=== PATIENT | male | born 1945 | race Caucasian/White ===

== ENCOUNTER 2020-08-19 12:29 | Inpatient (IN) ==
[2020-08-19] MEDS ORDERED: LACTATED RINGERS 1,000 ML IV ONE (12:47)
--- NOTE | 2020-08-19 12:47 | Emergency Department Note ---
Lower Extremity Injury HPI General Chief Complaint: Extremity Injury, Lower Stated Complaint: right hip fracture Time Seen by Provider: 08/19/20 12:39 Source: patient, EMS and RN notes reviewed Mode of arrival: EMS Limitations: no limitations History of Present Illness HPI Narrative: Narrative: This patient slipped and fell in his house last evening and called into another room to get help by phone and was taken to [place] [facility] and was diagnosed with a right hip fracture. He did have a negative COVID test done there. He had no other further work-up done and was transferred here. Dr. Mauricio was previously aware as well as Dr. Luu. Patient does have pain we will treat that and do the initial preop work-up and then he will be admitted to the hospital by Dr. Luu. complaint: hip injury Onset (ago): hour(s) Injury: Right: hip Place: home Severity: moderate Improves with: rest Worsens with: weight bearing, movement and palpation Context: fall Other symptoms: none Related Data Home Medications Medication Instructions Recorded Confirmed aspirin [Adult Low Dose Aspirin] 81 mg PO QDAY 07/22/15 08/19/20 citalopram 20 mg PO DAILY 07/22/15 08/19/20 omeprazole 20 mg PO BID 07/22/15 08/19/20 simvastatin 20 mg PO DAILY 07/22/15 08/19/20 melatonin 10 mg PO HS 08/19/20 08/19/20 methocarbamol 325 mg PO QID 08/19/20 08/19/20 oxybutynin chloride 5 mg PO QID 08/19/20 08/19/20 oxycodone-acetaminophen 1 tab PO TID 08/19/20 08/19/20 Allergies Allergy/AdvReac Type Severity Reaction Status Date / Time ciprofloxacin [CIPROFLOXACIN] AdvReac Mild ITCHING Verified 08/19/20 16:11 Review of Systems ROS ROS Narrative: Narrative: All systems ED: reviewed and negative except as stated. Constitutional: Denies fever and chills Cardiovascular: Denies chest pain Respiratory: Denies shortness of breath and cough PFSH Narrative Patient History Narrative: Narrative: Medical/Surgical/Family History All Active Problems (Updated 08/20/20 @ 07:30 by Lucius Lopez MD) Closed right hip fracture (Acute) Osteoarthritis, knee (Acute) Medical History (Updated 08/20/20 @ 07:30 by Lucius Lopez MD) Closed right hip fracture (Acute) Osteoarthritis, knee (Acute) Social History Smoking Status: Never smoker Exam Narrative Narrative: Narrative: General Limitations: no limitations Head Head: Present atraumatic, normocephalic and normal inspection Eye Eye: Present normal appearance and EOMI; Absent scleral icterus and conjunctival injection ENT ENT: Present normal exam, normal oropharynx and mucous membranes moist Neck Neck: Present normal inspection and full ROM Chest Chest: Present normal inspection and symmetric chest wall rise Respiratory Respiratory: Present normal lung sounds bilaterally; Absent respiratory distress, rales/crackles and wheezes Cardiovascular Cardiovascular: Present regular rate, normal rhythm and normal heart sounds Adbominal Abdominal: Present soft; Absent distention and tenderness Extremities Extremities: Present other (Right leg shortening with external rotation and tenderness to the hip.) Neurological Neurological: Present alert Psychiatric Psychiatric: Present normal affect Skin Skin: Present warm (WNL) and dry; Absent diaphoresis Course Vital Signs Vital signs: Vital Signs Temperature 98.4 F 08/19/20 12:31 Pulse Rate 97 H 08/19/20 12:31 Respiratory Rate 16 08/19/20 12:31 Pulse Oximetry (%) 100 08/19/20 12:31 Temperature 98.7 F 08/20/20 04:24 Pulse Rate 101 H 08/20/20 04:24 Respiratory Rate 18 08/20/20 04:24 Blood Pressure 97/66 08/20/20 04:24 Pulse Oximetry (%) 94 08/20/20 04:24 MDM MDM Narrative Medical decision making narrative: Narrative: Lab Data Lab results reviewed: Yes I reviewed the patient's lab results. Result diagrams: 08/19/20 12:53 08/20/20 05:51 Labs: Lab Results 08/19/20 08/19/20 08/19/20 Range/Units 12:53 12:53 12:53 WBC 5.5 (4.5-11.0) K/mcL RBC 3.76 L (4.50-5.90) M/mcL Hgb 12.0 L (13.5-16.5) g/dL Hct 33.8 L (41.0-55.0) % MCV 89.9 (80.0-100.0) fL MCH 31.9 (26.0-34.0) pg MCHC 35.5 (31.0-36.0) g/dL RDW 12.7 (11.5-14.5) % Plt Count 184 (140-440) K/mcL MPV 9.4 (7.4-10.4) fL Neut % (Auto) 77.4 (38.0-78.0) % Lymph % (Auto) 11.8 L (15.0-49.0) % Coffee % (Auto) 9.9 (1.0-12.0) % Eos % (Auto) 0.4 (0.0-7.0) % Baso % (Auto) 0.5 (0.0-2.0) % Lymph # (Auto) 0.65 L (1.50-4.80) K/mcL Coffee # (Auto) 0.55 (0.10-0.90) K/mcL Eos # (Auto) 0.02 (0.00-0.70) K/mcL Baso # (Auto) 0.03 (0.00-0.20) K/mcL Absolute Neutrophils 4.28 (1.80-8.00) K/mcL PT 13.3 (11.9-14.5) sec INR 1.0 (0.9-1.1) Sodium 129 L (133-145) mmol/L Potassium 3.5 (3.3-5.1) mmol/L Chloride 95 L (96-108) mmol/L Carbon Dioxide 23 (22-30) mmol/L Anion Gap 11.0 (8.0-16.0) BUN 13 (8-23) mg/dL Creatinine 0.7 (0.7-1.2) mg/dL GFR Calculation 91 Glucose 92 (70-105) mg/dL Calcium 8.9 (8.6-10.4) mg/dL Total Bilirubin 1.1 H (0.1-1.0) mg/dL AST 16 (<40) U/L ALT 10 (<40) U/L Alkaline Phosphatase 50 (39-117) U/L Total Protein 5.5 L (5.9-8.4) gm/dL Albumin 3.7 (3.2-5.2) gm/dL Globulin 1.8 L (2.2-3.7) gm/dL Albumin/Globulin Ratio 2.1 (1.0-2.3) Discharge Plan Patient/Caregiver Discharge Instructions Pt seen by STOCK PREPARATION OPERATOR/PA only: No Clinical Impression: Closed right hip fracture Patient Disposition: Xfer As Inpt ([facility]) Condition: Good Discharge Date/Time: 08/19/20 15:45 Discharge Location: [facility]
[2020-08-19] MEDS: HYDROmorphone 0.5 MG/0.5 ML SYRINGE IV PRN ×2 (13:00→14:25)
--- NOTE | 2020-08-19 13:06 | Internal Med History&Physical ---
HPI History of Present Illness Patient information: Note initiated : 08/19/20 at 1:04 pm Service Date, if different from initiated Date: [] Patient: Brandon Tripp a 75 y/o M admitted on for right hip fracture. Chief Complaint: [] History of present illness: Mr. Tripp is a 75 year old M very independent who lives alone at [facility]. Patient is morning got off balance and landed on his right side with resultant severe pain. Patient passed out for approximately half an hour following which he crawled into another room and called EMS. Patient was taken to [facility] where initial work-up was consistent with right hip fracture. Ortho pedics Dr. Mauricio was consulted and patient was requested to be transferred to [facility]. Patient was brought in to the [facility] ER. Hospital service was requested for admission. At the time of my evaluation patient is in significant distress from pain 10 out of 10 with minimal movement around the right hip. He denies precipitating events including lightheadedness, dizziness, prior similar episodes Review of systems 10 point review system was performed and is negative except for ones cussed above PFSH PFSH All Active Problems (Updated 08/20/20 @ 07:30 by Lucius Lopez MD) Closed right hip fracture (Acute) Osteoarthritis, knee (Acute) Medical History (Updated 08/20/20 @ 07:30 by Lucius Lopez MD) Closed right hip fracture (Acute) Osteoarthritis, knee (Acute) Social History smoking status: Never smoker MEDS/ALLERGIES Home Medications and Allergies Home Medications Medication Instructions Recorded Confirmed Type aspirin [Adult Low Dose Aspirin] 81 mg PO QDAY 07/22/15 08/19/20 History citalopram 20 mg PO DAILY 07/22/15 08/19/20 History omeprazole 20 mg PO BID 07/22/15 08/19/20 History simvastatin 20 mg PO DAILY 07/22/15 08/19/20 History melatonin 10 mg PO HS 08/19/20 08/19/20 History methocarbamol 325 mg PO QID 08/19/20 08/19/20 History oxybutynin chloride 5 mg PO QID 08/19/20 08/19/20 History oxycodone-acetaminophen 1 tab PO TID 08/19/20 08/19/20 History Allergies Allergy/AdvReac Type Severity Reaction Status Date / Time ciprofloxacin [CIPROFLOXACIN] AdvReac Mild ITCHING Verified 08/19/20 16:11 Onion AdvReac Nausea Verified 08/20/20 10:59 EXAM Constitutional Vitals: Temp Pulse Resp BP Pulse Ox 98.4 F 98 H 16 139/86 97 08/19/20 12:31 08/19/20 12:46 08/19/20 12:31 08/19/20 12:46 08/19/20 12:46 Very anxious and distressed from pain Head normocephalic Oral cavity moist No ear nose discharge Eye movement symmetrical Neck supple no lymphadenopathy S1-S2 occasionally irregular Nonlabored breathing Nondistended nontender abdomen Right lower extremity externally rotated and shortened, otherwise no cyanosis clubbing Skin no suspicious lesion Psych anxious but alert cooperative Neuro normal higher function DATA Data Completed and Pending Labs: Labs from last 24 hours 08/19/20 08/19/20 08/19/20 12:53 12:53 12:53 WBC Pending RBC Pending Hgb Pending Hct Pending MCV Pending MCH Pending MCHC Pending RDW Pending Plt Count Pending MPV Pending Neut % (Auto) Pending PT Pending INR Pending Sodium Pending Potassium Pending Chloride Pending Carbon Dioxide Pending Anion Gap Pending BUN Pending Creatinine Pending GFR Calculation Pending Glucose Pending Calcium Pending Total Bilirubin Pending AST Pending ALT Pending Alkaline Phosphatase Pending Total Protein Pending Albumin Pending Globulin Pending Albumin/Globulin Ratio Pending A/P Narrative A/P Narrative: * Right hip fracture-orthopedic consult/pain management/keep n.p.o. until operative intervention. * Preop risk evaluation-based on RCRI [employer] to stratification patient would fall under moderate to high risk category in the setting advanced age. Surgery and anesthesia specific risk will be addressed by individual providers. No modifiable risk factors at this time. Recommend maintaining Intra-Op map over 70 to minimize coronary and cerebral hypoperfusion. * History of GERD continue PPI * History of hyperlipidemia continue statin * Anxiety disorder continue citalopram * Full code Plan * Inpatient admission * Orthopedic consult * Pain management * Keep n.p.o./crystalloids * Postoperative rehab/dietary support Time Spent With Patient Time: Total time spent is greater than 50% in coordination of care (as documented) at patient's floor/unit and/or counseling patient:
--- NOTE | 2020-08-19 13:14 | XRay Report ---
CLINICAL INFORMATION: preop COMPARISON: 06/13/2009 FINDINGS: Heart is normal in size and configuration. Tortuous thoracic aorta again noted. The remaining mediastinum and pulmonary vessels are unremarkable. COPD appreciated, but no infiltrates or new pulmonary abnormalities. Pleural spaces are normal. Fractured sternotomy wires seen - as before. Severe degenerative change seen in both glenohumeral and acromioclavicular joints. Fractures the posterior fifth sixth seventh ribs are likely chronic. IMPRESSION: No acute disease. Interpreted and Authenticated by: Jovany Muhammad 08/19/20
[2020-08-19 13:48] LABS: Basophils # (Auto) 0.03 K/mcL (0.00-0.20); Basophils % (Auto) 0.5 % (0.0-2.0); Eosinophils # (Auto) 0.02 K/mcL (0.00-0.70); Eosinophils % (Auto) 0.4 % (0.0-7.0); Hematocrit 33.8 % (41.0-55.0); Lymphocytes # (Auto) 0.65 K/mcL (1.50-4.80); Lymphocytes % (Auto) 11.8 % (15.0-49.0); Mean Cell Volume 89.9 fL (80.0-100.0); Mean Corpuscular HGB Conc 35.5 g/dL (31.0-36.0); Mean Platelet Volume 9.4 fL (7.4-10.4); Monocytes # (Auto) 0.55 K/mcL (0.10-0.90); Monocytes % (Auto) 9.9 % (1.0-12.0); Neutrophils % (Auto) 77.4 % (38.0-78.0); Platelet Count 184 K/mcL (140-440); RBC 3.76 M/mcL (4.50-5.90); Red Cell Distribution Width 12.7 % (11.5-14.5); WBC 5.5 K/mcL (4.5-11.0)
[2020-08-19 14:14] LABS: ALT/SGPT 10 U/L (<40); AST/SGOT 16 U/L (<40); Albumin 3.7 gm/dL (3.2-5.2); Albumin/Globulin Ratio 2.1 (1.0-2.3); Alkaline Phosphatase 50 U/L (39-117); Bilirubin,Total 1.1 mg/dL (0.1-1.0); Blood Urea Nitrogen 13 mg/dL (8-23); Calcium 8.9 mg/dL (8.6-10.4); Carbon Dioxide 23 mmol/L (22-30); Chloride 95 mmol/L (96-108); Globulin 1.8 gm/dL (2.2-3.7); Glomerular Filtration Rate 91; Glucose 92 mg/dL (70-105)
[2020-08-19 14:34] LABS: Prothrombin Time 13.3 sec (11.9-14.5)
[2020-08-19] MEDS ORDERED: ONDANSETRON 4 MG ODT TABLET SL PRN ×2 (15:32→20:20)
[2020-08-19] MEDS ORDERED: MAGNESIUM SULFATE 2 GM/50 ML BAG IV PRN ×2 (15:32→20:20)
[2020-08-19] MEDS ORDERED: MELATONIN 3 MG TABLET PO PRN ×2 (15:32→20:20)
[2020-08-19] MEDS ORDERED: ACETAMINOPHEN 650 MG/65 ML BOTTLE IV PRN ×2 (15:32→20:20)
[2020-08-19] MEDS ORDERED: 0.9 % SODIUM CHLORIDE 10 ML SYRINGE IV SCH (15:32)
[2020-08-19] MEDS ORDERED: HYDROmorphone 0.5 MG/0.5 ML SYRINGE IV PRN (15:32)
[2020-08-19] MEDS ORDERED: POLYETHYLENE GLYCOL 3350 17 GM PACKET PO PRN ×3 (15:32→20:20)
[2020-08-19] MEDS ORDERED: BISACODYL 10 MG SUPP.RECT PR PRN ×3 (15:32→20:20)
[2020-08-19] MEDS ORDERED: ACETAMINOPHEN 325 MG TABLET PO PRN (15:32)
[2020-08-19] MEDS ORDERED: oxyCODONE/APAP 5/325MG TABLET PO PRN ×2 (15:32→20:20)
[2020-08-19] MEDS ORDERED: 0.9 % SODIUM CHLORIDE 1,000 ML IV SCH (15:32)
[2020-08-19] MEDS ORDERED: POTASSIUM CHLORIDE 40 MEQ in DEXTROSE 5% IN WATER 500 ML IV PRN ×2 (15:32→20:20)
[2020-08-19] MEDS ORDERED: ONDANSETRON 4 MG/2 ML VIAL IV PRN ×4 (15:32→20:20)
[2020-08-19] MEDS ORDERED: HYDROmorphone 0.5 MG/0.5 ML SYRINGE IV ONE (16:17)
[2020-08-19] MEDS ORDERED: METHOCARBAMOL 1,000 MG/10 ML VIAL IV ONE (16:18)
[2020-08-19 16:53] LABS: Appearance,Urine CLEAR (Clear); Bilirubin,Urine NEG (Negative); Color,Urine YELLOW; Culture Indicated,Urine No; Glucose,Urine (UA) NEG (Negative); Ketones,Urine 5 mg/dL (Negative); Leukocyte Esterase,Urine NEG /ug (Negative); Mucus,Urine FEW /hpf; Nitrate,Urine NEG (Negative); Protein,Urine NEG (Negative); Specific Gravity,Urine 1.015 (1.000-1.035); Urine Blood 0.03 mg/dL (Negative); Urine RBC 4 /hpf (0-1); Urine Squamous Epithelial Cell < 1 /hpf (0-4); Urine WBC 1 /hpf (0-4)
[2020-08-19] MEDS ORDERED: ceFAZolin 2 GM in DEXTROSE 5% IN WATER 50 ML IV SCH (17:00)
[2020-08-19] MEDS ORDERED: OMEPRAZOLE 20 MG CAPSULE PO SCH (17:00)
[2020-08-19] MEDS: OXYBUTYNIN CHLORIDE 5 MG TABLET PO SCH ×2 (17:13→22:30)
[2020-08-19] MEDS: METHOCARBAMOL 750 MG TABLET PO SCH (17:14)
[2020-08-19] MEDS ORDERED: fentaNYL 100 MCG/2 ML VIAL IV ONE (17:18)
[2020-08-19] MEDS ORDERED: LIDOCAINE HCL/PF 100 MG/5 ML SYRINGE IV ONE (17:38)
[2020-08-19] MEDS ORDERED: ESMOLOL 100 MG/10 ML VIAL IV ONE (17:38)
[2020-08-19] MEDS ORDERED: VERAPAMIL 2.5 MG/ML VIAL IV ONE (17:38)
[2020-08-19] MEDS ORDERED: GLYCOPYRROLATE 0.2 MG/ML VIAL IV ONE (17:38)
[2020-08-19] MEDS ORDERED: PHENYLEPHRINE 10 MG/ML VIAL ONE (17:38)
[2020-08-19] MEDS ORDERED: KETAMINE 100 MG/ML ML ONE (17:38)
[2020-08-19] MEDS ORDERED: ONDANSETRON 4 MG/2 ML VIAL ONE (17:38)
[2020-08-19] MEDS ORDERED: PROPOFOL 200 MG/20 ML VIAL IV ONE (17:38)
[2020-08-19] MEDS ORDERED: MIDAZOLAM 2 MG/2 ML VIAL ONE (17:38)
[2020-08-19] MEDS ORDERED: TRANEXAMIC ACID 1,000 MG/10 ML VIAL IV ONE (17:38)
[2020-08-19] MEDS ORDERED: fentaNYL 250 MCG/5 ML VIAL IV ONE (17:38)
[2020-08-19] MEDS ORDERED: ACETAMINOPHEN 1,000 MG/100 ML BOTTLE IV ONE (18:30)
[2020-08-19] MEDS ORDERED: IPRATROPIUM/ALBUTEROL 3 ML AMPUL.NEB NEB PRN ×2 (18:30→20:20)
[2020-08-19] MEDS ORDERED: DIAZEPAM 10 MG/2 ML SYRINGE IV PRN ×2 (18:30→20:20)
[2020-08-19] MEDS ORDERED: fentaNYL 100 MCG/2 ML VIAL IV PRN ×2 (18:30→20:20)
[2020-08-19] MEDS ORDERED: BENZOCAINE/MENTHOL 1 LOZENGE PO PRN ×3 (18:30→20:20)
[2020-08-19] MEDS ORDERED: LACTATED RINGERS 1,000 ML IV SCH ×2 (18:30→20:20)
--- NOTE | 2020-08-19 18:44 | Brief Operative Note ---
Brief Operative Note Date of procedure: 08/19/20 Pre-op diagnosis: Right intertrochanteric fracture Post-op diagnosis: same Procedure: ORIF gamma Grafts/Implants: Yes Anesthesia: GETA Complications: none Surgeon: Yayo Mauricio
[2020-08-19] MEDS ORDERED: FLEETS ADULT ENEMA PR PRN (18:46)
[2020-08-19] MEDS ORDERED: MAGNESIUM HYDROXIDE 30 ML ORAL.SUSP PO PRN (18:46)
[2020-08-19] MEDS ORDERED: TEMAZEPAM 15 MG CAPSULE PO PRN (18:46)
[2020-08-19] MEDS ORDERED: 0.9 % SODIUM CHLORIDE 10 ML SYRINGE IV ONE (18:49)
[2020-08-19] MEDS ORDERED: ceFAZolin 1 GM VIAL IV SCH (19:00)
--- NOTE | 2020-08-19 19:00 | XRay Report ---
CLINICAL INFORMATION: gamma hip nailing COMPARISON: None. FINDINGS: Multiple digital images from the OR show comminuted oblique intertrochanteric fracture reduced to anatomic alignment transfixed by gamma nail and screws. IMPRESSION: ORIF acute intratrochanteric fracture transfixed by gamma nail and screws. Anatomic alignment Interpreted and Authenticated by: Jovany Muhammad 08/19/20
[2020-08-19] MEDS ORDERED: METOPROLOL TARTRATE 5 MG/5 ML VIAL IV ONE (19:46)
[2020-08-19] MEDS ORDERED: NON FORMULARY MEDICATION 1 DOSE MISCELL (Melatonin 10 MG) PO SCH (21:00)
[2020-08-19] MEDS ORDERED: DOCUSATE SODIUM 100 MG CAPSULE PO SCH ×2 (21:00)
[2020-08-19] MEDS ORDERED: HEPARIN 5,000 UNIT/ML VIAL SQ SCH (21:00)
[2020-08-19] MEDS ORDERED: METHOCARBAMOL 750 MG TABLET PO SCH (21:00)
[2020-08-19] MEDS ORDERED: SENNOSIDES/DOCUSATE SODIUM 1 TAB TABLET PO SCH (21:00)
[2020-08-19] MEDS: SENNOSIDES/DOCUSATE SODIUM 1 TAB TABLET PO SCH (22:17)
[2020-08-19] MEDS: 0.9 % SODIUM CHLORIDE 10 ML SYRINGE IV SCH (22:18)
[2020-08-19] MEDS: 0.9 % SODIUM CHLORIDE 1,000 ML IV SCH (22:38)
[2020-08-19] MEDS: SENNOSIDES 1 TABLET PO SCH (22:39)
[2020-08-19] MEDS: DOCUSATE SODIUM 100 MG CAPSULE PO SCH (22:39)
[2020-08-19] MEDS: HEPARIN 5,000 UNIT/ML VIAL SQ SCH (22:39)
[2020-08-19] MEDS: ASPIRIN 325 MG ENTERIC COATED TABLET PO SCH (22:39)
[2020-08-20] MEDS: oxyCODONE/APAP 5/325MG TABLET PO PRN ×5 (00:21→21:32)
[2020-08-20] MEDS: ceFAZolin 1 GM VIAL IV SCH ×2 (01:10→09:07)
--- NOTE | 2020-08-20 03:35 | XRay Report ---
CLINICAL INFORMATION: Post op surgery. COMPARISON: None. FINDINGS: Intertrochanteric fracture has been reduced to near anatomic alignment is transfixed by long gamma nail. Lesser trochanteric fragment is and displaced 1 cm medially. Right knee prostheses is anatomically aligned. Diffuse soft tissue swelling seen as expected IMPRESSION: Intratrochanteric fracture reduced to near anatomic alignment and transfixed by gamma nail. Interpreted and Authenticated by: Jovany Muhammad 08/20/20
[2020-08-20] MEDS: 0.9 % SODIUM CHLORIDE 10 ML SYRINGE IV SCH ×3 (04:32→21:35)
[2020-08-20 07:10] LABS: ALT/SGPT 11 U/L (<40); AST/SGOT 22 U/L (<40); Albumin 3.3 gm/dL (3.2-5.2); Albumin/Globulin Ratio 1.8 (1.0-2.3); Alkaline Phosphatase 42 U/L (39-117); Bilirubin,Direct 0.3 mg/dL (<0.3); Bilirubin,Total 0.7 mg/dL (0.1-1.0); Blood Urea Nitrogen 14 mg/dL (8-23); Calcium 8.9 mg/dL (8.6-10.4); Carbon Dioxide 23 mmol/L (22-30); Chloride 99 mmol/L (96-108); Globulin 1.8 gm/dL (2.2-3.7); Glomerular Filtration Rate 86; Glucose 153 mg/dL (70-105); Lactate Dehydrogenase 173 U/L (135-225); Phosphorous 4.2 mg/dL (2.5-4.5); Triglycerides 36 mg/dL (<150); Uric Acid 3.6 mg/dL (2.5-8.0)
--- NOTE | 2020-08-20 07:14 | Orthopedic Progress Note ---
SUBJECTIVE Subjective Patient information: Note initiated : 08/20/20 at 7:10 am Service Date, if different from initiated Date: [] Patient: Brandon Tripp 75 y/o M admitted on 08/19/20 for right hip fracture. Chief Complaint: [Patient is doing well. Somewhat confused with time of day but is otherwise alert and oriented] Constitutional Vitals: Vital Signs Temp Pulse Resp BP Pulse Ox 98.7 F 101 H 18 97/66 94 08/20/20 04:24 08/20/20 04:24 08/20/20 04:24 08/20/20 04:24 08/20/20 04:24 Period Temp Pulse Resp BP Sys/Murray Pulse Ox Last 24 Hr 98.4 F-99.6 F 97-144 16-24 88-160/48-94 88-100 Intake and Output 08/19/20 08/20/20 08/20/20 21:59 05:59 13:59 Intake Total 1800 50 Output Total 700 250 Balance 1100 -200 Weight 153 lb 164 lb Intake & Output: Intake & Output 08/19/20 08/20/20 08/20/20 21:59 05:59 13:59 Intake Total 1800 50 Output Total 700 250 Balance 1100 -200 Weight 153 lb 164 lb Intake: IV 1000 Lactated Ringers 1,000 ml @ 1000 Wide Open IV BOLUS ONE Rx#: [id number] Oral 50 IV - Manual Only 800 Output: Urine Catheter Amount 600 250 Void Amount 100 Other: Urine Appearance Clear Uretheral ([place]) Clear Urine Color Dark Yellow Light Tammy Uretheral ([place]) Bright Yellow Urine Odor Strong Extremities Exam Extremities exam: Present calf tenderness (negative bilat), tenderness (right lateral hip) and Santy's sign (negative bilaterally) Additional comments: Surgical wounds over the right lateral hip contain intact radha w/o any significant drainage, erythema, eccymosis. Neurological Exam Neurological exam: Present alert Psychiatric Psychiatric exam: Present normal affect OBJ DATA Labs CBC & Chem 7: 08/19/20 12:53 08/20/20 05:51 Labs: Abnormal Lab Results 08/20/20 08/19/20 08/19/20 05:51 15:49 12:53 RBC Hgb Hct Lymph % (Auto) Lymph # (Auto) Sodium 131 L 129 L Chloride 95 L Glucose 153 H Magnesium 1.5 L Total Bilirubin 1.1 H Direct Bilirubin 0.3 H Total Protein 5.1 L 5.5 L Globulin 1.8 L 1.8 L Urine Ketones 5 A Urine Urobilinogen 2.0 A Urine RBC 4 H Urine Mucus Few A 08/19/20 12:53 RBC 3.76 L Hgb 12.0 L Hct 33.8 L Lymph % (Auto) 11.8 L Lymph # (Auto) 0.65 L Sodium Chloride Glucose Magnesium Total Bilirubin Direct Bilirubin Total Protein Globulin Urine Ketones Urine Urobilinogen Urine RBC Urine Mucus Meds: Medications Acetaminophen (Tylenol) 650 mg PO Q4-6HP PRN; Protocol PRN Reason: Per Pain Protocol/Fever > 101 Aspirin (Ecotrin) 325 mg PO BID [facility] Last Admin: 08/19/20 22:39 Dose: 325 mg Documented by: Bisacodyl (Dulcolax) 10 mg GA Q2-3DAYS PRN PRN Reason: Constipation Cefazolin Sodium (Ancef) 1 gm IV Q8H [facility] Stop: 08/20/20 09:31 Last Admin: 08/20/20 01:10 Dose: 1 gm Documented by: Citalopram Hydrobromide (Celexa) 20 mg PO DAILY [facility] Diazepam (Valium) 2 mg IV Q1-2HP PRN PRN Reason: Anxiety Docusate Sodium (Colace) 100 mg PO BID [facility] Last Admin: 08/19/20 22:39 Dose: 100 mg Documented by: Heparin Sodium (Porcine) (Heparin) 5,000 unit SQ Q12 [facility] Last Admin: 08/19/20 22:39 Dose: 5,000 unit Documented by: Hydromorphone HCl (Dilaudid) 0.25 - 0.5 mg IV Q4HP PRN; Protocol PRN Reason: Per Pain Protocol Sodium Chloride (Sodium Chloride 0.9%) 1,000 mls @ 50 mls/hr IV .Q20H [facility] Stop: 08/22/20 03:31 Last Admin: 08/19/20 22:38 Dose: 50 mls/hr Documented by: Acetaminophen (Ofirmev) 650 mg in 65 mls @ 130 mls/hr IV Q6HP PRN; Protocol PRN Reason: Per Pain Protocol/Fever > 101 Magnesium Sulfate (Magnesium Sulfate) 2 gm in 50 mls @ 50 mls/hr IV UD PRN PRN Reason: MG = or < 1.7 Potassium Chloride 40 meq/ (Dextrose) 520 mls @ 130 mls/hr IV UD PRN PRN Reason: K+ = or < 3.5 Iron Carb/Multivit/Schedule Clerk/Folic Acid (Multivitamin W/Minerals) 1 tab PO DAILY [facility] Magnesium Hydroxide (Milk Of Magnesia) 30 ml PO BIDP PRN PRN Reason: Constipation Melatonin (Melatonin 3mg Tablet) 3 mg PO HSP PRN PRN Reason: Insomnia Methocarbamol (Robaxin) 750 mg PO Q6HP PRN PRN Reason: Muscle Spasm Omeprazole (Prilosec) 20 mg PO BIDAC [facility] Ondansetron HCl (Zofran Odt) 4 mg SL Q4-6HP PRN; Protocol PRN Reason: Nausea And Vomiting Ondansetron HCl (Zofran) 4 mg IV Q4-6HP PRN; Protocol PRN Reason: Nausea And Vomiting Oxybutynin Chloride (Ditropan) 5 mg PO QID [facility] Last Admin: 08/19/20 22:30 Dose: Not Given Documented by: Oxycodone/Acetaminophen (Percocet 5-325 Mg) 0 tab PO Q4HP PRN; Protocol PRN Reason: Per Pain Protocol Last Admin: 08/20/20 04:31 Dose: 2 tab Documented by: Polyethylene Glycol (Miralax) 17 gm PO DAILYP PRN PRN Reason: Constipation Senna (Senokot) 2 tab PO [facility] Last Admin: 08/19/20 22:39 Dose: 2 tab Documented by: Senna/Docusate Sodium (Senna Plus Tablet) 1 tab PO [facility] Last Admin: 08/19/20 22:17 Dose: Not Given Documented by: Simvastatin (Zocor) 20 mg PO DAILY [facility] Sodium Biphosphate/Sodium Phosphate (Fleets Adult) 1 dose GA Q3-4DAYS PRN PRN Reason: Constipation Sodium Chloride (Saline Flush) 10 ml IV Q8 [facility] Last Admin: 08/20/20 04:32 Dose: Not Given Documented by: Temazepam (Restoril) 15 mg PO HSP PRN PRN Reason: Insomnia Throat Lozenges (Cepacol) 1 lozenge PO PRN PRN PRN Reason: Sore Throat A/P Assessment and plan (1) Closed right hip fracture: Assessment and plan: TTWB on RLE. Mobilize with PT. Likely discharge to SNF in 2-3 days per hospitalist. Status: Acute Time Spent With Patient Time: Total time spent is greater than 50% in coordination of care (as documented) at patient's floor/unit and/or counseling patient:
--- NOTE | 2020-08-20 07:17 | Consultation ---
DATE OF CONSULTATION: 08/19/2020 REASON FOR CONSULTATION: Right comminuted intertrochanteric hip fracture. HISTORY OF PRESENT ILLNESS: The patient sustained a non-syncopal ground level fall this morning. He was seen at [facility] in [place]. He had radiographs which demonstrated the right hip fracture. He was transferred here for further evaluation and management. PAST MEDICAL HISTORY: Significant for dyspepsia and urinary retention. SOCIAL HISTORY: He lives at home with his dogs. PAST SURGICAL HISTORY: Noncontributory to this present problem. MEDICATIONS: 1. Aspirin. 2. Citalopram. 3. Omeprazole. 4. Simvastatin. 5. Melatonin. 6. Robaxin. 7. Oxybutynin. 9. Oxycodone. DRUG ALLERGIES: CIPROFLOXACIN. REVIEW OF SYSTEMS: He has generally been healthy. He denies any real acute changes in past medical history. Balanced 10-point review of systems negative. PHYSICAL EXAMINATION: GENERAL: He is awake and alert, answers questions appropriately. HEENT: Head: Normocephalic and atraumatic. Eyes: PERRLA. Conjunctivae clear. ENT: Within normal limits. He is edentulous. NECK: Supple without pain on range of motion. HEART: Regular. LUNGS: Clear. ABDOMEN: Benign. RIGHT LOWER EXTREMITY: Shortened. He has significant pain with any motion. RADIOLOGIC STUDIES: Demonstrate a comminuted intertrochanteric right hip fracture. IMPRESSION: Fracture as above. PLAN: Proceed with a reduction and internal fixation. The surgical procedure, risks, complications, and limitations have been discussed with this gentleman. He understands these well and wishes to proceed. GDD:lb Job ID: [id number] Doc ID: [id number] Yayo Mauricio MD
--- NOTE | 2020-08-20 07:23 | Operative Note ---
DATE OF OPERATION: 08/19/2020 PREOPERATIVE DIAGNOSIS: Comminuted right intertrochanteric hip fracture. POSTOPERATIVE DIAGNOSIS: Comminuted right intertrochanteric hip fracture. OPERATION PROPOSED: Reduction and internal fixation using a gamma intramedullary hip screw, right hip. OPERATION PERFORMED: Reduction and internal fixation using a gamma intramedullary hip screw, right hip. SURGEON: Yyao Mauricio MD RESTAURANT ASSOCIATE: Roberth Lilly PA-C. This provider's expertise and technical skill were required throughout the case. The PA assisted with preoperative coordination, intraoperative retraction, wound closure, dressing and splint application, as well as postoperative documentation and care coordination. INDICATIONS: This is a gentleman who has a comminuted and significantly displaced intertrochanteric hip fracture. The lesser trochanter is fractured off and this extends down into the subtrochanteric region. We have elected to proceed with a long gamma nail. OPERATION IN DETAIL: Informed consent was obtained, the patient taken to the operating where he was provided with appropriate anesthetic and prophylactic antibiotics. He was carefully positioned. His hip was prepped sterilely. A lateral approach was made and I advanced to the tip of the greater trochanter. I then entered the tip of the trochanter with a 3.2 mm guidewire and reamed over this using the opening reamer. A long guidewire was applied and then I performed a reaming of the intramedullary canal. I reamed to an 11.5. I then inserted a 10 x 38 mm le. I advanced a guidewire across the fracture, low in the calcar and up into the femoral head and neck. The position was verified on multiple views with fluoroscopy. I then reamed and placed a hip bolt. This was locked to the intramedullary device. Distal interlocking screws were applied. Extensive irrigation was performed. 0 Vicryl in interrupted fashion, 2-0 Vicryl inverted deep dermal, and radha in the skin were used. The procedure was tolerated well. No complications. Estimated blood loss 100 mL. GDD:lb Job ID: [id number] Doc ID: [id number] Yayo Mauricio MD
[2020-08-20 07:42] LABS: INR 1.1 (0.9-1.1); Prothrombin Time 14.5 sec (11.9-14.5)
[2020-08-20] MEDS: OMEPRAZOLE 20 MG CAPSULE PO SCH ×2 (08:07→17:44)
[2020-08-20 08:48] LABS: Band Neutrophils % 2 % (0-10); Hematocrit 29.4 % (41.0-55.0); Hemoglobin 9.9 g/dL (13.5-16.5); Lymphocytes % 5 % (15-49); Mean Cell Volume 93.6 fL (80.0-100.0); Mean Corpuscular HGB Conc 33.7 g/dL (31.0-36.0); Mean Platelet Volume 9.4 fL (7.4-10.4); Monocytes % (Manual) 6 % (1-12); Platelet Count 161 K/mcL (140-440); Platelet Estimate NORMAL (Normal); RBC 3.14 M/mcL (4.50-5.90); RBC Morphology NORMAL (Normal); Red Cell Distribution Width 12.8 % (11.5-14.5); Segmented Neutrophils % 87 % (38-78); WBC 5.8 K/mcL (4.5-11.0)
[2020-08-20] MEDS: METHOCARBAMOL 750 MG TABLET PO PRN ×2 (08:55→17:44)
[2020-08-20] MEDS: CITALOPRAM 20 MG TABLET PO SCH (08:55)
[2020-08-20] MEDS: MULTIVIT,THER IRON,CA,FA & MIN 1 TABLET PO SCH (08:55)
[2020-08-20] MEDS: SIMVASTATIN 20 MG TABLET PO SCH (08:55)
[2020-08-20] MEDS: DOCUSATE SODIUM 100 MG CAPSULE PO SCH ×2 (08:56→21:35)
[2020-08-20] MEDS: HEPARIN 5,000 UNIT/ML VIAL SQ SCH ×2 (08:56→21:35)
[2020-08-20] MEDS: ASPIRIN 325 MG ENTERIC COATED TABLET PO SCH ×2 (08:56→21:34)
[2020-08-20] MEDS ORDERED: ASPIRIN 81 MG TAB.CHEW PO SCH ×2 (09:00)
[2020-08-20] MEDS ORDERED: SIMVASTATIN 20 MG TABLET PO SCH (09:00)
[2020-08-20] MEDS ORDERED: MULTIVIT,THER IRON,CA,FA & MIN 1 TABLET PO SCH (09:00)
[2020-08-20] MEDS ORDERED: CITALOPRAM 20 MG TABLET PO SCH (09:00)
[2020-08-20] MEDS: OXYBUTYNIN CHLORIDE 5 MG TABLET PO SCH ×4 (09:07→21:34)
[2020-08-20] MEDS: HYDROmorphone 0.5 MG/0.5 ML SYRINGE IV PRN ×2 (10:42→23:20)
--- NOTE | 2020-08-20 11:43 | Internal Med Progress Note ---
SUBJECTIVE Subjective Patient information: Note initiated : 08/20/20 at 11:43 am Service Date, if different from initiated Date: [] Patient: Brandon Tripp a 75 y/o M admitted on 08/19/20 for right hip fracture. Chief Complaint: Mr. Tripp is a 75 year old M very independent who lives alone at [facility]. Patient is morning got off balance and landed on his right side with resultant severe pain. Patient passed out for approximately half an hour following which he crawled into another room and called EMS. Patient was taken to [facility] where initial work-up was consistent with right hip fracture. Orthopedics Dr. Mauricio was consulted and patient was requested to be transferred to [facility]. Patient was brought in to the [facility] ER. Hospital service was requested for admission. At the time of my evaluation patient is in significant distress from pain 10 out of 10 with minimal movement around the right hip. He denies precipitating events including lightheadedness, dizziness, prior similar episodes 08/20-patient doing well. No overnight events. No concerns per nursing staff. Denies fever chills. Ongoing postop rehab. Sitting on chair. De La Cruz draining clear urine. Denies significant postoperative pain swelling. Constitutional Vitals: Vital Signs Temp Pulse Resp BP Pulse Ox 98.7 F 93 H 20 106/53 95 08/20/20 07:00 08/20/20 07:00 08/20/20 07:00 08/20/20 07:00 08/20/20 07:00 Period Temp Pulse Resp BP Sys/Murray Pulse Ox Last 24 Hr 98.4 F-99.6 F 93-144 16-24 88-160/48-94 88-100 Intake and Output 08/19/20 08/20/20 08/20/20 21:59 05:59 13:59 Intake Total 1800 50 Output Total 700 250 Balance 1100 -200 Weight 69.4 kg 74.389 kg 74.389 kg Patient Weight 08/21/20 05:59 Weight 74.389 kg Alert oriented Nonlabored breathing Right hip postop dressing De La Cruz is draining clear urine Intake & Output: Intake & Output 08/19/20 08/20/20 08/20/20 21:59 05:59 13:59 Intake Total 1800 50 Output Total 700 250 Balance 1100 -200 Weight 69.4 kg 74.389 kg 74.389 kg Intake: IV 1000 Lactated Ringers 1,000 ml @ 1000 Wide Open IV BOLUS ONE Rx#: [id number] Oral 50 IV - Manual Only 800 Output: Urine Catheter Amount 600 250 Void Amount 100 Other: Urine Appearance Clear Uretheral (De La Cruz) Clear Urine Color Dark Yellow Light Tammy Uretheral (De La Cruz) Bright Yellow Urine Odor Strong OBJ DATA Labs CBC & Chem 7: 08/20/20 05:51 08/20/20 05:51 Labs: Abnormal Lab Results 08/20/20 08/20/20 08/19/20 05:51 05:51 15:49 RBC 3.14 L Hgb 9.9 L Hct 29.4 L Lymph % (Auto) Lymph # (Auto) Seg Neutrophils % 87 H Lymphocytes % 5 L Sodium 131 L Chloride Glucose 153 H Magnesium 1.5 L Total Bilirubin Direct Bilirubin 0.3 H Total Protein 5.1 L Globulin 1.8 L Urine Ketones 5 A Urine Urobilinogen 2.0 A Urine RBC 4 H Urine Mucus Few A 08/19/20 08/19/20 12:53 12:53 RBC 3.76 L Hgb 12.0 L Hct 33.8 L Lymph % (Auto) 11.8 L Lymph # (Auto) 0.65 L Seg Neutrophils % Lymphocytes % Sodium 129 L Chloride 95 L Glucose Magnesium Total Bilirubin 1.1 H Direct Bilirubin Total Protein 5.5 L Globulin 1.8 L Urine Ketones Urine Urobilinogen Urine RBC Urine Mucus Meds: Medications Acetaminophen (Tylenol) 650 mg PO Q4-6HP PRN; Protocol PRN Reason: Per Pain Protocol/Fever > 101 Aspirin (Ecotrin) 325 mg PO BID [facility] Last Admin: 08/20/20 08:56 Dose: 325 mg Documented by: Bisacodyl (Dulcolax) 10 mg IN Q2-3DAYS PRN PRN Reason: Constipation Citalopram Hydrobromide (Celexa) 20 mg PO DAILY [facility] Last Admin: 08/20/20 08:55 Dose: 20 mg Documented by: Diazepam (Valium) 2 mg IV Q1-2HP PRN PRN Reason: Anxiety Docusate Sodium (Colace) 100 mg PO BID [facility] Last Admin: 08/20/20 08:56 Dose: 100 mg Documented by: Heparin Sodium (Porcine) (Heparin) 5,000 unit SQ Q12 [facility] Last Admin: 08/20/20 08:56 Dose: 5,000 unit Documented by: Hydromorphone HCl (Dilaudid) 0.25 - 0.5 mg IV Q4HP PRN; Protocol PRN Reason: Per Pain Protocol Last Admin: 08/20/20 10:42 Dose: 0.5 mg Documented by: Sodium Chloride (Sodium Chloride 0.9%) 1,000 mls @ 50 mls/hr IV .Q20H [facility] Stop: 08/22/20 03:31 Last Admin: 08/19/20 22:38 Dose: 50 mls/hr Documented by: Acetaminophen (Ofirmev) 650 mg in 65 mls @ 130 mls/hr IV Q6HP PRN; Protocol PRN Reason: Per Pain Protocol/Fever > 101 Magnesium Sulfate (Magnesium Sulfate) 2 gm in 50 mls @ 50 mls/hr IV UD PRN PRN Reason: MG = or < 1.7 Potassium Chloride 40 meq/ (Dextrose) 520 mls @ 130 mls/hr IV UD PRN PRN Reason: K+ = or < 3.5 Iron Carb/Multivit/[place]/Folic Acid (Multivitamin W/Minerals) 1 tab PO DAILY [facility] Last Admin: 08/20/20 08:55 Dose: 1 tab Documented by: Magnesium Hydroxide (Milk Of Magnesia) 30 ml PO BIDP PRN PRN Reason: Constipation Melatonin (Melatonin 3mg Tablet) 3 mg PO HSP PRN PRN Reason: Insomnia Methocarbamol (Robaxin) 750 mg PO Q6HP PRN PRN Reason: Muscle Spasm Last Admin: 08/20/20 08:55 Dose: 750 mg Documented by: Omeprazole (Prilosec) 20 mg PO BIDAC [facility] Last Admin: 08/20/20 08:07 Dose: 20 mg Documented by: Ondansetron HCl (Zofran Odt) 4 mg SL Q4-6HP PRN; Protocol PRN Reason: Nausea And Vomiting Ondansetron HCl (Zofran) 4 mg IV Q4-6HP PRN; Protocol PRN Reason: Nausea And Vomiting Oxybutynin Chloride (Ditropan) 5 mg PO QID [facility] Last Admin: 08/20/20 09:07 Dose: 5 mg Documented by: Oxycodone/Acetaminophen (Percocet 5-325 Mg) 0 tab PO Q4HP PRN; Protocol PRN Reason: Per Pain Protocol Last Admin: 08/20/20 08:56 Dose: 2 tab Documented by: Polyethylene Glycol (Miralax) 17 gm PO DAILYP PRN PRN Reason: Constipation Senna (Senokot) 2 tab PO HS [facility] Last Admin: 08/19/20 22:39 Dose: 2 tab Documented by: Senna/Docusate Sodium (Senna Plus Tablet) 1 tab PO HS [facility] Last Admin: 08/19/20 22:17 Dose: Not Given Documented by: Simvastatin (Zocor) 20 mg PO DAILY [facility] Last Admin: 08/20/20 08:55 Dose: 20 mg Documented by: Sodium Biphosphate/Sodium Phosphate (Fleets Adult) 1 dose IN Q3-4DAYS PRN PRN Reason: Constipation Sodium Chloride (Saline Flush) 10 ml IV Q8 [facility] Last Admin: 08/20/20 04:32 Dose: Not Given Documented by: Temazepam (Restoril) 15 mg PO HSP PRN PRN Reason: Insomnia Throat Lozenges (Cepacol) 1 lozenge PO PRN PRN PRN Reason: Sore Throat A/P Assessment and plan (1) Closed right hip fracture: Assessment and plan: TTWB on RLE. Mobilize with PT. Likely discharge to SNF in 2-3 days per hospitalist. Status: Acute Qualifiers: Encounter type: initial encounter Qualified Code(s): S72.001A - Fracture of unspecified part of neck of right femur, initial encounter for closed fracture Narrative A/P Narrative: * Right hip fracture-postoperative day 1. Managed per orthopedics. On aspirin per orthopedics for DVT prophylaxis * Pain management as per orthopedics * History of GERD continue PPI * History of hyperlipidemia continue statin * Anxiety disorder continue citalopram * Full code Plan * Postop care per orthopedics * Pain management/DVT prophylaxis per orthopedics * Pre-existing medical condition management home meds as above * Continue postoperative rehab/dietary support * Discharge planning likely to SNF, case management to coordinate Time Spent With Patient Time: Total time spent is greater than 50% in coordination of care (as documented) at patient's floor/unit and/or counseling patient: QUALITY VTE Deep Vein Thrombosis/Pulmonary Embolism Present on Admission: No
[2020-08-20] MEDS: 0.9 % SODIUM CHLORIDE 1,000 ML IV SCH (15:22)
[2020-08-20] MEDS: SENNOSIDES/DOCUSATE SODIUM 1 TAB TABLET PO SCH (21:34)
[2020-08-20] MEDS: SENNOSIDES 1 TABLET PO SCH (21:35)
[2020-08-21] MEDS: 0.9 % SODIUM CHLORIDE 10 ML SYRINGE IV SCH ×3 (04:20→21:08)
[2020-08-21] MEDS: METHOCARBAMOL 750 MG TABLET PO PRN ×2 (04:53→21:05)
[2020-08-21] MEDS: oxyCODONE/APAP 5/325MG TABLET PO PRN ×3 (04:53→21:05)
--- NOTE | 2020-08-21 07:43 | Orthopedic Progress Note ---
SUBJECTIVE Subjective Patient information: Note initiated : 08/21/20 at 7:42 am Service Date, if different from initiated Date: [] Patient: Brandon Tripp 75 y/o M admitted on 08/19/20 for right hip fracture. Chief Complaint: [] very somulent Constitutional Vitals: Vital Signs Temp Pulse Resp BP Pulse Ox 97.6 F 103 H 16 115/70 92 08/21/20 04:25 08/21/20 07:00 08/21/20 04:25 08/21/20 04:25 08/21/20 04:25 Period Temp Pulse Resp BP Sys/Murray Pulse Ox Last 24 Hr 97.4 F-98.9 F 94-104 - 104-117/66-72 92-99 Intake and Output 08/20/20 08/21/20 08/21/20 21:59 05:59 13:59 Intake Total 3507 250 Output Total 500 551 Balance 3007 -301 Weight 159 lb 6.4 oz Intake & Output: Intake & Output 08/20/20 08/21/20 08/21/20 21:59 05:59 13:59 Intake Total 3507 250 Output Total 500 551 Balance 3007 -301 Weight 159 lb 6.4 oz Intake: IV 1507 Sodium Chloride 0.9% 1,000 ml @ 837 50 mls/hr IV .Q20H [facility] Rx#: [id number] Lactated Ringers 1,000 ml @ 20 520 mls/hr IV .Q24H [facility] Rx#: [id number] Ancef 2 gm In Dextrose 5% in 50 Water 50 ml @ 100 mls/hr IV PREOP [facility] Rx#:[id number] Oral 2000 250 Output: Urine Catheter Amount 250 Uretheral (De La Cruz) 250 Void Amount 250 550 # of times incontinent of urine 1 Other: Meal Dinner Percent of Meal Consumed 100% Feeding Ability Assist with Tray Set Up Urine Appearance Clear Clear Uretheral (De La Cruz) Clear Urine Color Dark Yellow Bright Yellow Uretheral (De La Cruz) Dark Yellow Urine Odor Normal Normal Uretheral (De La Cruz) Strong OBJ DATA Labs CBC & Chem 7: 08/20/20 05:51 08/20/20 05:51 Labs: Abnormal Lab Results 08/20/20 08/20/20 08/19/20 05:51 05:51 15:49 RBC 3.14 L Hgb 9.9 L Hct 29.4 L Lymph % (Auto) Lymph # (Auto) Seg Neutrophils % 87 H Lymphocytes % 5 L Sodium 131 L Chloride Glucose 153 H Magnesium 1.5 L Total Bilirubin Direct Bilirubin 0.3 H Total Protein 5.1 L Globulin 1.8 L Urine Ketones 5 A Urine Urobilinogen 2.0 A Urine RBC 4 H Urine Mucus Few A 08/19/20 08/19/20 12:53 12:53 RBC 3.76 L Hgb 12.0 L Hct 33.8 L Lymph % (Auto) 11.8 L Lymph # (Auto) 0.65 L Seg Neutrophils % Lymphocytes % Sodium 129 L Chloride 95 L Glucose Magnesium Total Bilirubin 1.1 H Direct Bilirubin Total Protein 5.5 L Globulin 1.8 L Urine Ketones Urine Urobilinogen Urine RBC Urine Mucus Meds: Medications Acetaminophen (Tylenol) 650 mg PO Q4-6HP PRN; Protocol PRN Reason: Per Pain Protocol/Fever > 101 Aspirin (Ecotrin) 325 mg PO BID [facility] Last Admin: 08/20/20 21:34 Dose: 325 mg Documented by: Bisacodyl (Dulcolax) 10 mg NV Q2-3DAYS PRN PRN Reason: Constipation Citalopram Hydrobromide (Celexa) 20 mg PO DAILY [facility] Last Admin: 08/20/20 08:55 Dose: 20 mg Documented by: Diazepam (Valium) 2 mg IV Q1-2HP PRN PRN Reason: Anxiety Docusate Sodium (Colace) 100 mg PO BID [facility] Last Admin: 08/20/20 21:35 Dose: Not Given Documented by: Heparin Sodium (Porcine) (Heparin) 5,000 unit SQ Q12 [facility] Last Admin: 08/20/20 21:35 Dose: Not Given Documented by: Hydromorphone HCl (Dilaudid) 0.25 - 0.5 mg IV Q4HP PRN; Protocol PRN Reason: Per Pain Protocol Last Admin: 08/20/20 23:20 Dose: 0.5 mg Documented by: Sodium Chloride (Sodium Chloride 0.9%) 1,000 mls @ 50 mls/hr IV .Q20H [facility] Stop: 08/22/20 03:31 Last Admin: 08/20/20 15:22 Dose: 50 mls/hr Documented by: Acetaminophen (Ofirmev) 650 mg in 65 mls @ 130 mls/hr IV Q6HP PRN; Protocol PRN Reason: Per Pain Protocol/Fever > 101 Magnesium Sulfate (Magnesium Sulfate) 2 gm in 50 mls @ 50 mls/hr IV UD PRN PRN Reason: MG = or < 1.7 Last Infusion: 08/20/20 13:28 Dose: Infused Documented by: Potassium Chloride 40 meq/ (Dextrose) 520 mls @ 130 mls/hr IV UD PRN PRN Reason: K+ = or < 3.5 Iron Carb/Multivit/[place]/Folic Acid (Multivitamin W/Minerals) 1 tab PO DAILY [facility] Last Admin: 08/20/20 08:55 Dose: 1 tab Documented by: Magnesium Hydroxide (Milk Of Magnesia) 30 ml PO BIDP PRN PRN Reason: Constipation Melatonin (Melatonin 3mg Tablet) 3 mg PO HSP PRN PRN Reason: Insomnia Methocarbamol (Robaxin) 750 mg PO Q6HP PRN PRN Reason: Muscle Spasm Last Admin: 08/21/20 04:53 Dose: 750 mg Documented by: Omeprazole (Prilosec) 20 mg PO BIDAC [facility] Last Admin: 08/20/20 17:44 Dose: 20 mg Documented by: Ondansetron HCl (Zofran Odt) 4 mg SL Q4-6HP PRN; Protocol PRN Reason: Nausea And Vomiting Ondansetron HCl (Zofran) 4 mg IV Q4-6HP PRN; Protocol PRN Reason: Nausea And Vomiting Oxybutynin Chloride (Ditropan) 5 mg PO QID [facility] Last Admin: 08/20/20 21:34 Dose: 5 mg Documented by: Oxycodone/Acetaminophen (Percocet 5-325 Mg) 0 tab PO Q4HP PRN; Protocol PRN Reason: Per Pain Protocol Last Admin: 08/21/20 04:53 Dose: 2 tab Documented by: Polyethylene Glycol (Miralax) 17 gm PO DAILYP PRN PRN Reason: Constipation Senna (Senokot) 2 tab PO HS [facility] Last Admin: 08/20/20 21:35 Dose: Not Given Documented by: Senna/Docusate Sodium (Senna Plus Tablet) 1 tab PO HS [facility] Last Admin: 08/20/20 21:34 Dose: 1 tab Documented by: Simvastatin (Zocor) 20 mg PO DAILY [facility] Last Admin: 08/20/20 08:55 Dose: 20 mg Documented by: Sodium Biphosphate/Sodium Phosphate (Fleets Adult) 1 dose NV Q3-4DAYS PRN PRN Reason: Constipation Sodium Chloride (Saline Flush) 10 ml IV Q8 [facility] Last Admin: 08/21/20 04:20 Dose: Not Given Documented by: Temazepam (Restoril) 15 mg PO HSP PRN PRN Reason: Insomnia Last Admin: 08/20/20 21:32 Dose: 15 mg Documented by: Throat Lozenges (Cepacol) 1 lozenge PO PRN PRN PRN Reason: Sore Throat A/P Narrative A/P Narrative: mobilize \ dc planning Time Spent With Patient Time: Total time spent is greater than 50% in coordination of care (as documented) at patient's floor/unit and/or counseling patient:
--- NOTE | 2020-08-21 07:45 | Discharge Summary ---
Discharge Provider Provider Patient information: Note initiated : 08/21/20 at 7:43 am Service Date, if different from initiated Date: [] Patient: Brandon Tripp 75 y/o M admitted on 08/19/20 for right hip fracture. Chief Complaint: [] Date of admission: 08/19/20 15:20 Primary care physician: Nathaniel Blanco Consults: 08/19/20 15:32 Consult to Physician [CONS] Routine Comment: Consulting Provider: Yayo Mauricio Reason For Exam: Physician to Consult 08/19/20 18:00 Consult to Physician [CONS] Routine Comment: Consulting Provider: Dillon Lopez Reason For Exam: Physician to Consult COURSE Time Spent with Patient Time attestation: Total time spent providing and/or coordinating discharge services: Discharge Plan Patient/Caregiver Discharge Instructions Prescriptions: No Action citalopram 20 MG tablet 20 mg PO DAILY RF: 0 simvastatin 20 MG tablet 20 mg PO DAILY RF: 0 omeprazole 20 MG capsule,delayed release(DR/EC) 20 mg PO BID RF: 0 aspirin [Adult Low Dose Aspirin] 81 MG tablet,delayed release (DR/EC) 81 mg PO QDAY RF: 0 oxycodone-acetaminophen 5-325 mg tablet 1 tab PO TID RF: 0 methocarbamol 750 mg Tablet 325 mg PO QID RF: 0 oxybutynin chloride 5 mg Tablet 5 mg PO QID RF: 0 melatonin 10 mg Tablet 10 mg PO HS RF: 0 Follow Up Plan Prognosis: Good Pending Pending Pending: Resuscitation Status Full Code Diet Regular Diet Start TueAug 19 1849 Aspirin (Ecotrin) 325 mg PO BID [facility] Last Admin: 08/20/20 21:34 Dose: 325 mg Documented by: Admin: 08/20/20 08:56 Dose: 325 mg Documented by: Admin: 08/19/20 22:39 Dose: 325 mg Documented by: JOSE Citalopram Hydrobromide (Celexa) 20 mg PO DAILY [facility] Last Admin: 08/20/20 08:55 Dose: 20 mg Documented by: HEATHER Docusate Sodium (Colace) 100 mg PO BID [facility] Last Admin: 08/20/20 21:35 Dose: Not Given Documented by: Admin: 08/20/20 08:56 Dose: 100 mg Documented by: Admin: 08/19/20 22:39 Dose: 100 mg Documented by: JOSE Heparin Sodium (Porcine) (Heparin) 5,000 unit SQ Q12 [facility] Last Admin: 08/20/20 21:35 Dose: Not Given Documented by: Admin: 08/20/20 08:56 Dose: 5,000 unit Documented by: Admin: 08/19/20 22:39 Dose: 5,000 unit Documented by: JOSE Hydromorphone HCl (Dilaudid) 0.25 - 0.5 mg IV Q4HP PRN; Protocol PRN Reason: Per Pain Protocol Last Admin: 08/20/20 23:20 Dose: 0.5 mg Documented by: Admin: 08/20/20 10:42 Dose: 0.5 mg Documented by: HEATHER Sodium Chloride (Sodium Chloride 0.9%) 1,000 mls @ 50 mls/hr IV .Q20H [facility] Stop: 08/22/20 03:31 Last Admin: 08/20/20 15:22 Dose: 50 mls/hr Documented by: Infusion: 08/20/20 15:22 Dose: 50 mls/hr Documented by: Admin: 08/19/20 22:38 Dose: 50 mls/hr Documented by: JOSE Magnesium Sulfate (Magnesium Sulfate) 2 gm in 50 mls @ 50 mls/hr IV UD PRN PRN Reason: MG = or < 1.7 Last Infusion: 08/20/20 13:28 Dose: 50 mls/hr Documented by: Admin: 08/20/20 12:28 Dose: 50 mls/hr Documented by: HEATHER Iron Carb/Multivit/[place]/Folic Acid (Multivitamin W/Minerals) 1 tab PO DAILY [facility] Last Admin: 08/20/20 08:55 Dose: 1 tab Documented by: HEATHER Methocarbamol (Robaxin) 750 mg PO Q6HP PRN PRN Reason: Muscle Spasm Last Admin: 08/21/20 04:53 Dose: 750 mg Documented by: Admin: 08/20/20 17:44 Dose: 750 mg Documented by: Admin: 08/20/20 08:55 Dose: 750 mg Documented by: HEATHER Omeprazole (Prilosec) 20 mg PO BIDAC [facility] Last Admin: 08/20/20 17:44 Dose: 20 mg Documented by: Admin: 08/20/20 08:07 Dose: 20 mg Documented by: HEATHER Oxybutynin Chloride (Ditropan) 5 mg PO QID [facility] Last Admin: 08/20/20 21:34 Dose: 5 mg Documented by: Admin: 08/20/20 17:44 Dose: 5 mg Documented by: Admin: 08/20/20 12:28 Dose: 5 mg Documented by: Admin: 08/20/20 09:07 Dose: 5 mg Documented by: Admin: 08/19/20 22:30 Dose: Not Given Documented by: JOSE Oxycodone/Acetaminophen (Percocet 5-325 Mg) 0 tab PO Q4HP PRN; Protocol PRN Reason: Per Pain Protocol Last Admin: 08/21/20 04:53 Dose: 2 tab Documented by: Admin: 08/20/20 21:32 Dose: 2 tab Documented by: Admin: 08/20/20 13:32 Dose: 2 tab Documented by: Admin: 08/20/20 08:56 Dose: 2 tab Documented by: Admin: 08/20/20 04:31 Dose: 2 tab Documented by: Admin: 08/20/20 00:21 Dose: 2 tab Documented by: JOSE Senna (Senokot) 2 tab PO HS [facility] Last Admin: 08/20/20 21:35 Dose: Not Given Documented by: Admin: 08/19/20 22:39 Dose: 2 tab Documented by: JOSE Senna/Docusate Sodium (Senna Plus Tablet) 1 tab PO HS [facility] Last Admin: 08/20/20 21:34 Dose: 1 tab Documented by: Admin: 08/19/20 22:17 Dose: Not Given Documented by: JOSE Simvastatin (Zocor) 20 mg PO DAILY [facility] Last Admin: 08/20/20 08:55 Dose: 20 mg Documented by: HEATHER Sodium Chloride (Saline Flush) 10 ml IV Q8 [facility] Last Admin: 08/21/20 04:20 Dose: Not Given Documented by: Admin: 08/20/20 21:35 Dose: Not Given Documented by: Admin: 08/20/20 12:29 Dose: Not Given Documented by: Admin: 08/20/20 04:32 Dose: Not Given Documented by: Admin: 08/19/20 22:18 Dose: Not Given Documented by: JOSE Temazepam (Restoril) 15 mg PO HSP PRN PRN Reason: Insomnia Last Admin: 08/20/20 21:32 Dose: 15 mg Documented by: NIMISHA Shift Summary 08/21/20 04:18 Shift Summary by Anais Dockery Patient is alert and oriented to self only, he has decreased cognition and had difficulty finding words at times but is able to take direction. He is toe touch weight bearing precautions to his right leg post op and c/o pain and decreased ROM post mechanical fall to his right shoulder during the shift. He did poorly with PT/OT and staff when attempted to transfer out of bed and due to poor memory he was unable to follow weight bearing precautions. ATR sheet in place, pillows used to reposition and offload pressure with turn schedule 1-2 person assist. Dressing has shadow drainage circled to right lateral hip incision site that has not increased this shift, CMS intact, AV boots bilaterally, sacral dressing to coccyx for prophylactic blanchable redness. Percocet 2 tabs given twice this shift and Dilaudid 0.5 mg once for breakthrough and Robaxin once with adequate symptom management, voiding with removal of De La Cruz yesterday and PVR 10- 15. Food is to be cut up in small bites per sign letterer and dietary services is providing this for the patients meals and he can feed himself and takes his pills whole with water. Plan is to discharge to a SNF, referral pending to [facility]. Will update shift summary report at bedside. Initialized on 08/21/20 04:18 - END OF NOTE
[2020-08-21 08:21] LABS: Prothrombin Time 13.5 sec (11.9-14.5)
--- NOTE | 2020-08-21 08:33 | XRay Report ---
CLINICAL INFORMATION: Dyspnea COMPARISON: 08/19/2020 FINDINGS: Moderate cardiomegaly has increased. Mediastinum is unremarkable. Pulmonary vessels are now mildly distended and there is minimal peribronchovascular edema. No definite infiltrates. Multiple old malunified bilateral rib fractures seen as before. No definite effusion. IMPRESSION: Mild CHF - new Interpreted and Authenticated by: Jovany Muhammad 08/21/20
[2020-08-21] MEDS: ASPIRIN 325 MG ENTERIC COATED TABLET PO SCH ×2 (09:19→21:01)
[2020-08-21] MEDS: OXYBUTYNIN CHLORIDE 5 MG TABLET PO SCH ×4 (09:19→21:01)
[2020-08-21] MEDS: MULTIVIT,THER IRON,CA,FA & MIN 1 TABLET PO SCH (09:19)
[2020-08-21] MEDS: CITALOPRAM 20 MG TABLET PO SCH (09:19)
[2020-08-21] MEDS: OMEPRAZOLE 20 MG CAPSULE PO SCH ×2 (09:20→16:33)
[2020-08-21] MEDS: DOCUSATE SODIUM 100 MG CAPSULE PO SCH ×2 (09:20→21:01)
[2020-08-21] MEDS: HEPARIN 5,000 UNIT/ML VIAL SQ SCH ×2 (09:20→21:02)
[2020-08-21] MEDS: SIMVASTATIN 20 MG TABLET PO SCH (09:26)
[2020-08-21 09:31] LABS: ALT/SGPT 9 U/L (<40); AST/SGOT 26 U/L (<40); Albumin 3.2 gm/dL (3.2-5.2); Albumin/Globulin Ratio 1.9 (1.0-2.3); Alkaline Phosphatase 45 U/L (39-117); Bilirubin,Direct < 0.2 mg/dL (<0.3); Bilirubin,Total 0.4 mg/dL (0.1-1.0); Blood Urea Nitrogen 16 mg/dL (8-23); Calcium 8.4 mg/dL (8.6-10.4); Carbon Dioxide 24 mmol/L (22-30); Chloride 102 mmol/L (96-108); Globulin 1.7 gm/dL (2.2-3.7); Glomerular Filtration Rate 91; Glucose 141 mg/dL (70-105); Lactate Dehydrogenase 166 U/L (135-225); Phosphorous 2.6 mg/dL (2.5-4.5); Triglycerides 70 mg/dL (<150); Uric Acid 3.3 mg/dL (2.5-8.0)
[2020-08-21 09:38] LABS: Hematocrit 24.7 % (41.0-55.0); Lymphocytes % 12 % (15-49); Mean Cell Volume 95.7 fL (80.0-100.0); Mean Corpuscular HGB Conc 32.4 g/dL (31.0-36.0); Mean Platelet Volume 9.6 fL (7.4-10.4); Monocytes % (Manual) 11 % (1-12); Platelet Count 136 K/mcL (140-440); Platelet Estimate NORMAL (Normal); RBC 2.58 M/mcL (4.50-5.90); RBC Morphology NORMAL (Normal); Red Cell Distribution Width 12.9 % (11.5-14.5); Segmented Neutrophils % 77 % (38-78); WBC 4.8 K/mcL (4.5-11.0)
--- NOTE | 2020-08-21 10:20 | XRay Report ---
CLINICAL INFORMATION: pain fall COMPARISON: Chest x-ray 06/13/2009 FINDINGS: Malunified old fracture of the humeral anatomic neck resulting in the humeral head medially rotated and mildly unified to the medial proximal humeral diaphysis.. There is an oblique comminuted fracture through the tip of the clavicle. The proximal clavicle displaced one shaft width superiorly. Mild degeneration of the acromioclavicular and glenohumeral joint noted noted. Acute appearing fractures through the the lateral right third fourth and fifth ribs also appreciated. Soft tissues are normal IMPRESSION: 1. Oblique displaced fracture through the distal clavicle. 2. Malunified old fracture of the proximal humerus as no change 3. Right lateral third fourth and fifth rib fractures which are likely acute Interpreted and Authenticated by: Jovany Muhammad 08/21/20
--- NOTE | 2020-08-21 10:53 | Internal Med Progress Note ---
SUBJECTIVE Subjective Patient information: Note initiated : 08/21/20 at 10:50 am Service Date, if different from initiated Date: [] Patient: Brandon Tripp a 75 y/o M admitted on 08/19/20 for right hip fracture. Chief Complaint: Mr. Tripp is a 75 year old M very independent who lives alone at [facility]. Patient is morning got off balance and landed on his right side with resultant severe pain. Patient passed out for approximately half an hour following which he crawled into another room and called EMS. Patient was taken to [facility] where initial work-up was consistent with right hip fracture. Orthopedics Dr. Mauricio was consulted and patient was requested to be transferred to [facility]. Patient was brought in to the [facility] ER. Hospital service was requested for admission. At the time of my evaluation patient is in significant distress from pain 10 out of 10 with minimal movement around the right hip. He denies precipitating events including lightheadedness, dizziness, prior similar episodes 08/20-patient doing well. No overnight events. No concerns per nursing staff. Denies fever chills. Ongoing postop rehab. Sitting on chair. De La Cruz draining clear urine. Denies significant postoperative pain swelling. 08/21-patient doing well. Complains of right shoulder pain. Imaging reveals distal clavicular fracture/right lateral third fourth and fifth rib fracture along with malunion fight old fracture of right proximal humerus. Orthopedics informed of findings. No overnight events or concerns per staff. Hemoglobin 8, tolerating physical therapy and diet. Discharge planning per orthopedics Constitutional Vitals: Vital Signs Temp Pulse Resp BP Pulse Ox 97.8 F 93 H 16 103/66 93 08/21/20 08:00 08/21/20 08:00 08/21/20 08:00 08/21/20 08:00 08/21/20 08:00 Period Temp Pulse Resp BP Sys/Murray Pulse Ox Last 24 Hr 97.4 F-98.9 F 93-104 103-117/66-72 92-99 Intake and Output 08/20/20 08/21/20 08/21/20 21:59 05:59 13:59 Intake Total 3507 250 Output Total 500 551 250 Balance 3007 -301 -250 Weight 72.303 kg Alert oriented nonlabored breathing No anxiety Nondistended abdomen Intake & Output: Intake & Output 08/20/20 08/21/20 08/21/20 21:59 05:59 13:59 Intake Total 3507 250 Output Total 500 551 250 Balance 3007 -301 -250 Weight 72.303 kg Intake: IV 1507 Sodium Chloride 0.9% 1,000 ml @ 837 50 mls/hr IV .Q20H HAZEL Rx#: [id number] Lactated Ringers 1,000 ml @ 20 520 mls/hr IV .Q24H HAZEL Rx#: [id number] Ancef 2 gm In Dextrose 5% in 50 Water 50 ml @ 100 mls/hr IV PREOP HAZEL Rx#:[id number] Oral 2000 250 Output: Urine Catheter Amount 250 250 Uretheral (De La Cruz) 250 250 Void Amount 250 550 # of times incontinent of urine 1 Other: Meal Dinner Percent of Meal Consumed 100% Feeding Ability Assist with Tray Set Up Urine Appearance Clear Clear Uretheral (De La Cruz) Clear Clear Urine Color Dark Yellow Bright Yellow Uretheral (De La Cruz) Dark Yellow Dark Yellow Urine Odor Normal Normal Uretheral (De La Cruz) Strong Strong OBJ DATA Labs CBC & Chem 7: 08/21/20 05:35 08/21/20 05:35 Labs: Abnormal Lab Results 08/21/20 08/21/20 08/20/20 05:35 05:35 05:51 RBC 2.58 L Hgb 8.0 L Hct 24.7 L Plt Count 136 L Lymph % (Auto) Lymph # (Auto) Seg Neutrophils % Lymphocytes % 12 L Sodium 131 L Chloride Glucose 141 H 153 H Calcium 8.4 L Magnesium 1.5 L Total Bilirubin Direct Bilirubin 0.3 H Total Protein 4.9 L 5.1 L Globulin 1.7 L 1.8 L Urine Ketones Urine Urobilinogen Urine RBC Urine Mucus 08/20/20 08/19/20 08/19/20 05:51 15:49 12:53 RBC 3.14 L Hgb 9.9 L Hct 29.4 L Plt Count Lymph % (Auto) Lymph # (Auto) Seg Neutrophils % 87 H Lymphocytes % 5 L Sodium 129 L Chloride 95 L Glucose Calcium Magnesium Total Bilirubin 1.1 H Direct Bilirubin Total Protein 5.5 L Globulin 1.8 L Urine Ketones 5 A Urine Urobilinogen 2.0 A Urine RBC 4 H Urine Mucus Few A 08/19/20 12:53 RBC 3.76 L Hgb 12.0 L Hct 33.8 L Plt Count Lymph % (Auto) 11.8 L Lymph # (Auto) 0.65 L Seg Neutrophils % Lymphocytes % Sodium Chloride Glucose Calcium Magnesium Total Bilirubin Direct Bilirubin Total Protein Globulin Urine Ketones Urine Urobilinogen Urine RBC Urine Mucus Meds: Medications Acetaminophen (Tylenol) 650 mg PO Q4-6HP PRN; Protocol PRN Reason: Per Pain Protocol/Fever > 101 Aspirin (Ecotrin) 325 mg PO BID [facility] Last Admin: 08/21/20 09:19 Dose: 325 mg Documented by: Bisacodyl (Dulcolax) 10 mg CO Q2-3DAYS PRN PRN Reason: Constipation Citalopram Hydrobromide (Celexa) 20 mg PO DAILY [facility] Last Admin: 08/21/20 09:19 Dose: 20 mg Documented by: Diazepam (Valium) 2 mg IV Q1-2HP PRN PRN Reason: Anxiety Docusate Sodium (Colace) 100 mg PO BID [facility] Last Admin: 08/21/20 09:20 Dose: 100 mg Documented by: Heparin Sodium (Porcine) (Heparin) 5,000 unit SQ Q12 [facility] Last Admin: 08/21/20 09:20 Dose: 5,000 unit Documented by: Hydromorphone HCl (Dilaudid) 0.25 - 0.5 mg IV Q4HP PRN; Protocol PRN Reason: Per Pain Protocol Last Admin: 08/20/20 23:20 Dose: 0.5 mg Documented by: Sodium Chloride (Sodium Chloride 0.9%) 1,000 mls @ 50 mls/hr IV .Q20H [facility] Stop: 08/22/20 03:31 Last Admin: 08/20/20 15:22 Dose: 50 mls/hr Documented by: Acetaminophen (Ofirmev) 650 mg in 65 mls @ 130 mls/hr IV Q6HP PRN; Protocol PRN Reason: Per Pain Protocol/Fever > 101 Magnesium Sulfate (Magnesium Sulfate) 2 gm in 50 mls @ 50 mls/hr IV UD PRN PRN Reason: MG = or < 1.7 Last Infusion: 08/20/20 13:28 Dose: Infused Documented by: Potassium Chloride 40 meq/ (Dextrose) 520 mls @ 130 mls/hr IV UD PRN PRN Reason: K+ = or < 3.5 Iron Carb/Multivit/Logistics Intern/Folic Acid (Multivitamin W/Minerals) 1 tab PO DAILY [facility] Last Admin: 08/21/20 09:19 Dose: 1 tab Documented by: Magnesium Hydroxide (Milk Of Magnesia) 30 ml PO BIDP PRN PRN Reason: Constipation Melatonin (Melatonin 3mg Tablet) 3 mg PO HSP PRN PRN Reason: Insomnia Methocarbamol (Robaxin) 750 mg PO Q6HP PRN PRN Reason: Muscle Spasm Last Admin: 08/21/20 04:53 Dose: 750 mg Documented by: Omeprazole (Prilosec) 20 mg PO BIDAC [facility] Last Admin: 08/21/20 09:20 Dose: 20 mg Documented by: Ondansetron HCl (Zofran Odt) 4 mg SL Q4-6HP PRN; Protocol PRN Reason: Nausea And Vomiting Ondansetron HCl (Zofran) 4 mg IV Q4-6HP PRN; Protocol PRN Reason: Nausea And Vomiting Oxybutynin Chloride (Ditropan) 5 mg PO QID [facility] Last Admin: 08/21/20 09:19 Dose: 5 mg Documented by: Oxycodone/Acetaminophen (Percocet 5-325 Mg) 0 tab PO Q4HP PRN; Protocol PRN Reason: Per Pain Protocol Last Admin: 08/21/20 04:53 Dose: 2 tab Documented by: Polyethylene Glycol (Miralax) 17 gm PO DAILYP PRN PRN Reason: Constipation Senna (Senokot) 2 tab PO [facility] Last Admin: 08/20/20 21:35 Dose: Not Given Documented by: Senna/Docusate Sodium (Senna Plus Tablet) 1 tab PO HS [facility] Last Admin: 08/20/20 21:34 Dose: 1 tab Documented by: Simvastatin (Zocor) 20 mg PO DAILY [facility] Last Admin: 08/21/20 09:26 Dose: 20 mg Documented by: Sodium Biphosphate/Sodium Phosphate (Fleets Adult) 1 dose CO Q3-4DAYS PRN PRN Reason: Constipation Sodium Chloride (Saline Flush) 10 ml IV Q8 [facility] Last Admin: 08/21/20 04:20 Dose: Not Given Documented by: Temazepam (Restoril) 15 mg PO HSP PRN PRN Reason: Insomnia Last Admin: 08/20/20 21:32 Dose: 15 mg Documented by: Throat Lozenges (Cepacol) 1 lozenge PO PRN PRN PRN Reason: Sore Throat A/P Narrative A/P Narrative: * Right hip fracture-postoperative day 1. Managed per orthopedics. On aspirin per orthopedics for DVT prophylaxis * Pain management well controlled. Managed per orthopedics * Right third fourth and fifth rib fracture-incentive spirometer use/pain management * Right distal clavicle fracture orthopedic on board * History of GERD continue PPI * History of hyperlipidemia continue statin * Anxiety disorder continue citalopram * Full code Plan * Continue postop care per orthopedics * Pain management/DVT prophylaxis per orthopedics * Continue pre-existing medical condition management home meds as above * Continue postoperative rehab/dietary support * Discharge planning likely to SNF, case management to coordinate Time Spent With Patient Time: Total time spent is greater than 50% in coordination of care (as documented) at patient's floor/unit and/or counseling patient: QUALITY VTE Deep Vein Thrombosis/Pulmonary Embolism Present on Admission: No
[2020-08-21] MEDS: 0.9 % SODIUM CHLORIDE 1,000 ML IV SCH (12:40)
[2020-08-21] MEDS: ACETAMINOPHEN 325 MG TABLET PO PRN (19:35)
[2020-08-21] MEDS: SENNOSIDES 1 TABLET PO SCH (21:01)
[2020-08-21] MEDS: SENNOSIDES/DOCUSATE SODIUM 1 TAB TABLET PO SCH (21:07)
[2020-08-22] MEDS: oxyCODONE/APAP 5/325MG TABLET PO PRN (02:54)
[2020-08-22] MEDS: METHOCARBAMOL 750 MG TABLET PO PRN (02:55)
[2020-08-22] MEDS: 0.9 % SODIUM CHLORIDE 10 ML SYRINGE IV SCH (04:18)
[2020-08-22] MEDS: OMEPRAZOLE 20 MG CAPSULE PO SCH (07:22)
[2020-08-22 07:38] LABS: INR 0.9 (0.9-1.1)
--- NOTE | 2020-08-22 07:49 | Orthopedic Progress Note ---
SUBJECTIVE Subjective Patient information: Note initiated : 08/22/20 at 7:41 am Service Date, if different from initiated Date: [] Patient: Brandon Tripp 75 y/o M admitted on 08/19/20 for right hip fracture. Chief Complaint: [S/p ORIF of right hip fx] Patient requires assistance when up ambulating. He is resting comfortably and his pain is well-controlled. Constitutional Vitals: Vital Signs Temp Pulse Resp BP Pulse Ox 98.3 F 86 16 114/66 95 08/22/20 04:00 08/22/20 07:13 08/22/20 04:00 08/22/20 04:00 08/22/20 04:00 Period Temp Pulse Resp BP Sys/Murray Pulse Ox Last 24 Hr 97.8 F-98.3 F 85-93 16-16 103-121/61-72 92-95 Intake and Output 08/21/20 08/22/20 08/22/20 21:59 05:59 13:59 Intake Total 480 Output Total 200 700 300 Balance -200 -220 -300 Weight 158 lb 11.2 oz Intake & Output: Intake & Output 08/21/20 08/22/20 08/22/20 21:59 05:59 13:59 Intake Total 480 Output Total 200 700 300 Balance -200 -220 -300 Weight 158 lb 11.2 oz Intake: Oral 480 Output: Void Amount 200 700 300 Other: Meal Dinner Percent of Meal Consumed 100% Feeding Ability Independent Urine Appearance Clear Clear Urine Color Dark Yellow Bright Yellow Urine Odor Normal Normal Extremities Exam Extremities exam: Present calf tenderness (neg), Santy's sign (neg) and neurovascular intact Neurological Exam Neurological exam: Present alert and oriented X3 Psychiatric Psychiatric exam: Present normal affect and normal mood Additional findings Additional findings: Right hip: Surgical wound is approximated and radha are intact. No active drainage prestent. OBJ DATA Labs CBC & Chem 7: 08/21/20 05:35 08/21/20 05:35 Labs: Abnormal Lab Results 08/21/20 08/21/20 08/20/20 05:35 05:35 05:51 RBC 2.58 L Hgb 8.0 L Hct 24.7 L Plt Count 136 L Lymph % (Auto) Lymph # (Auto) Seg Neutrophils % Lymphocytes % 12 L Sodium 131 L Chloride Glucose 141 H 153 H Calcium 8.4 L Magnesium 1.5 L Total Bilirubin Direct Bilirubin 0.3 H Total Protein 4.9 L 5.1 L Globulin 1.7 L 1.8 L Urine Ketones Urine Urobilinogen Urine RBC Urine Mucus 08/20/20 08/19/20 08/19/20 05:51 15:49 12:53 RBC 3.14 L Hgb 9.9 L Hct 29.4 L Plt Count Lymph % (Auto) Lymph # (Auto) Seg Neutrophils % 87 H Lymphocytes % 5 L Sodium 129 L Chloride 95 L Glucose Calcium Magnesium Total Bilirubin 1.1 H Direct Bilirubin Total Protein 5.5 L Globulin 1.8 L Urine Ketones 5 A Urine Urobilinogen 2.0 A Urine RBC 4 H Urine Mucus Few A 08/19/20 12:53 RBC 3.76 L Hgb 12.0 L Hct 33.8 L Plt Count Lymph % (Auto) 11.8 L Lymph # (Auto) 0.65 L Seg Neutrophils % Lymphocytes % Sodium Chloride Glucose Calcium Magnesium Total Bilirubin Direct Bilirubin Total Protein Globulin Urine Ketones Urine Urobilinogen Urine RBC Urine Mucus Meds: Medications Acetaminophen (Tylenol) 650 mg PO Q4-6HP PRN; Protocol PRN Reason: Per Pain Protocol/Fever > 101 Last Admin: 08/21/20 19:35 Dose: 650 mg Documented by: Aspirin (Ecotrin) 325 mg PO BID [facility] Last Admin: 08/21/20 21:01 Dose: 325 mg Documented by: Bisacodyl (Dulcolax) 10 mg [place] Q2-3DAYS PRN PRN Reason: Constipation Citalopram Hydrobromide (Celexa) 20 mg PO DAILY [facility] Last Admin: 08/21/20 09:19 Dose: 20 mg Documented by: Diazepam (Valium) 2 mg IV Q1-2HP PRN PRN Reason: Anxiety Docusate Sodium (Colace) 100 mg PO BID [facility] Last Admin: 08/21/20 21:01 Dose: 100 mg Documented by: Heparin Sodium (Porcine) (Heparin) 5,000 unit SQ Q12 [facility] Last Admin: 08/21/20 21:02 Dose: 5,000 unit Documented by: Hydromorphone HCl (Dilaudid) 0.25 - 0.5 mg IV Q4HP PRN; Protocol PRN Reason: Per Pain Protocol Last Admin: 10/14/20 23:20 Dose: 0.5 mg Documented by: Acetaminophen (Ofirmev) 650 mg in 65 mls @ 130 mls/hr IV Q6HP PRN; Protocol PRN Reason: Per Pain Protocol/Fever > 101 Magnesium Sulfate (Magnesium Sulfate) 2 gm in 50 mls @ 50 mls/hr IV UD PRN PRN Reason: MG = or < 1.7 Last Infusion: 08/20/20 13:28 Dose: Infused Documented by: Potassium Chloride 40 meq/ (Dextrose) 520 mls @ 130 mls/hr IV UD PRN PRN Reason: K+ = or < 3.5 Iron Carb/Multivit/Capacity Planning Analyst/Folic Acid (Multivitamin W/Minerals) 1 tab PO DAILY [facility] Last Admin: 08/21/20 09:19 Dose: 1 tab Documented by: Magnesium Hydroxide (Milk Of Magnesia) 30 ml PO BIDP PRN PRN Reason: Constipation Melatonin (Melatonin 3mg Tablet) 3 mg PO HSP PRN PRN Reason: Insomnia Last Admin: 08/21/20 21:07 Dose: 3 mg Documented by: Methocarbamol (Robaxin) 750 mg PO Q6HP PRN PRN Reason: Muscle Spasm Last Admin: 08/22/20 02:55 Dose: 750 mg Documented by: Omeprazole (Prilosec) 20 mg PO BIDAC [facility] Last Admin: 08/22/20 07:22 Dose: 20 mg Documented by: Ondansetron HCl (Zofran Odt) 4 mg SL Q4-6HP PRN; Protocol PRN Reason: Nausea And Vomiting Ondansetron HCl (Zofran) 4 mg IV Q4-6HP PRN; Protocol PRN Reason: Nausea And Vomiting Oxybutynin Chloride (Ditropan) 5 mg PO QID [facility] Last Admin: 08/21/20 21:01 Dose: 5 mg Documented by: Oxycodone/Acetaminophen (Percocet 5-325 Mg) 0 tab PO Q4HP PRN; Protocol PRN Reason: Per Pain Protocol Last Admin: 08/22/20 02:54 Dose: 2 tab Documented by: Polyethylene Glycol (Miralax) 17 gm PO DAILYP PRN PRN Reason: Constipation Senna (Senokot) 2 tab PO HS [facility] Last Admin: 08/21/20 21:01 Dose: 2 tab Documented by: Senna/Docusate Sodium (Senna Plus Tablet) 1 tab PO HS [facility] Last Admin: 08/21/20 21:07 Dose: Not Given Documented by: Simvastatin (Zocor) 20 mg PO DAILY [facility] Last Admin: 08/21/20 09:26 Dose: 20 mg Documented by: Sodium Biphosphate/Sodium Phosphate (Fleets Adult) 1 dose [place] Q3-4DAYS PRN PRN Reason: Constipation Sodium Chloride (Saline Flush) 10 ml IV Q8 [facility] Last Admin: 08/22/20 04:18 Dose: Not Given Documented by: Temazepam (Restoril) 15 mg PO HSP PRN PRN Reason: Insomnia Last Admin: 08/20/20 21:32 Dose: 15 mg Documented by: Throat Lozenges (Cepacol) 1 lozenge PO PRN PRN PRN Reason: Sore Throat A/P Assessment and plan (1) Closed right hip fracture: Assessment and plan: TTWB on RLE. Apply silver dressing prior to dischar ge. Discharge to SNF today. Follow-up with [facility] in 2 weeks. Status: Acute Qualifiers: Encounter type: initial encounter Qualified Code(s): S72.001A - Fracture of unspecified part of neck of right femur, initial encounter for closed fracture Time Spent With Patient Time: Total time spent is greater than 50% in coordination of care (as documented) at patient's floor/unit and/or counseling patient:
[2020-08-22] MEDS: DOCUSATE SODIUM 100 MG CAPSULE PO SCH (08:16)
[2020-08-22] MEDS: HEPARIN 5,000 UNIT/ML VIAL SQ SCH (08:17)
[2020-08-22] MEDS: ASPIRIN 325 MG ENTERIC COATED TABLET PO SCH (08:17)
[2020-08-22] MEDS: OXYBUTYNIN CHLORIDE 5 MG TABLET PO SCH ×2 (08:17→13:01)
[2020-08-22] MEDS: MULTIVIT,THER IRON,CA,FA & MIN 1 TABLET PO SCH (08:17)
[2020-08-22] MEDS: SIMVASTATIN 20 MG TABLET PO SCH (08:17)
[2020-08-22] MEDS: CITALOPRAM 20 MG TABLET PO SCH (08:17)
[2020-08-22 10:28] LABS: Eosinophils % (Manual) 2 % (0-7); Hematocrit 24.9 % (41.0-55.0); Lymphocytes % 16 % (15-49); Mean Cell Volume 96.9 fL (80.0-100.0); Mean Corpuscular HGB Conc 32.1 g/dL (31.0-36.0); Mean Platelet Volume 9.5 fL (7.4-10.4); Monocytes % (Manual) 12 % (1-12); Platelet Count 136 K/mcL (140-440); Platelet Estimate NORMAL (Normal); RBC 2.57 M/mcL (4.50-5.90); RBC Morphology NORMAL (Normal); Red Cell Distribution Width 12.8 % (11.5-14.5); Segmented Neutrophils % 70 % (38-78); WBC 3.7 K/mcL (4.5-11.0)
[2020-08-22 10:29] LABS: ALT/SGPT 8 U/L (<40); AST/SGOT 23 U/L (<40); Albumin 2.9 gm/dL (3.2-5.2); Albumin/Globulin Ratio 1.4 (1.0-2.3); Alkaline Phosphatase 39 U/L (39-117); Bilirubin,Direct < 0.2 mg/dL (<0.3); Bilirubin,Total 0.4 mg/dL (0.1-1.0); Blood Urea Nitrogen 11 mg/dL (8-23); Calcium 8.6 mg/dL (8.6-10.4); Carbon Dioxide 21 mmol/L (22-30); Chloride 104 mmol/L (96-108); Globulin 2.1 gm/dL (2.2-3.7); Glomerular Filtration Rate 91; Glucose 113 mg/dL (70-105); Lactate Dehydrogenase 209 U/L (135-225); Phosphorous 2.7 mg/dL (2.5-4.5); Triglycerides 86 mg/dL (<150); Uric Acid 3.9 mg/dL (2.5-8.0)
--- NOTE | 2020-08-22 11:06 | Discharge Summary ---
Discharge Provider Provider Patient information: Note initiated : 08/22/20 at 11:03 am Service Date, if different from initiated Date: [] Patient: Brandon Tripp 75 y/o M admitted on 08/19/20 for right hip fracture. Chief Complaint: Discharge diagnosis * Right hip fracture-postoperative day 2. Managed per orthopedics. On aspirin per orthopedics for DVT prophylaxis. Discharging to [facility] for continued posthospitalization rehab * Pain management well controlled. Use as needed Tylenol/opioid * Right third fourth and fifth rib fracture-continue aggressive use of incentive spirometer to prevent hypostatic pneumonia/pain management as indicated * Right distal clavicle fracture/humerus fracture-nonoperative, on arm sling per orthopedics * History of GERD continue PPI * History of hyperlipidemia continue statin * Anxiety disorder continue citalopram Brief hospital course Mr. Tripp is a 75 year old M very independent who lives alone at [facility]. Patient is morning got off balance and landed on his right side with resultant severe pain. Patient passed out for approximately half an hour following which he crawled into another room and called EMS. Patient was taken to [facility] where initial work-up was consistent with right hip fracture. Orthopedics Dr. Mauricio was consulted and patient was requested to be transferred to [facility]. Patient was brought in to the [facility] ER. Hospital service was requested for admission. At the time of my evaluation patient is in significant distress from pain 10 out of 10 with minimal movement around the right hip. He denies precipitating events including lightheadedness, dizziness, prior similar episodes 08/20-patient doing well. No overnight events. No concerns per nursing staff. Denies fever chills. Ongoing postop rehab. Sitting on chair. De La Cruz draining clear urine. Denies significant postoperative pain swelling. 08/21-patient doing well. Complains of right shoulder pain. Imaging reveals distal clavicular fracture/right lateral third fourth and fifth rib fracture along with malunion fight old fracture of right proximal humerus. Orthopedics informed of findings. No overnight events or concerns per staff. Hemoglobin 8, tolerating physical therapy and diet. Discharge planning per orthopedics 08/22-patient doing well. Discharging to [facility] bed. No overnight events. No concerns per staff. Stable hemodynamics. Discharging as per Ortho with recommendations. Date of admission: 08/19/20 15:20 Discharge date: 08/22/20 Primary care physician: Nathaniel Blanco Consults: 08/19/20 15:32 Consult to Physician [CONS] Routine Comment: Consulting Provider: Yayo Mauricio Reason For Exam: Physician to Consult 08/19/20 18:00 Consult to Physician [CONS] Routine Comment: Consulting Provider: Dillon Lopez Reason For Exam: Physician to Consult Discharge Meds Discharge Medications Home Medications citalopram 20 mg PO DAILY 07/22/15 [History Confirmed 08/19/20 Last Taken 08/18/20] omeprazole 20 mg PO BID 07/22/15 [History Confirmed 08/19/20 Last Taken Unknown] simvastatin 20 mg PO DAILY 07/22/15 [History Confirmed 08/19/20 Last Taken Unknown] melatonin 10 mg PO HS 08/19/20 [History Confirmed 08/19/20 Last Taken 08/18/20] oxybutynin chloride 5 mg PO QID 08/19/20 [History Confirmed 08/19/20 Last Taken Unknown] aspirin 325 mg PO BID 30 Days #60 tab 08/22/20 [Rx Last Taken Unknown] methocarbamol 750 mg PO Q6HP PRN #40 tab 08/22/20 [Rx Last Taken Unknown] oxycodone-acetaminophen 1 - 2 tab PO Q4HP PRN #60 tab 08/22/20 [Rx Last Taken Unknown] COURSE Hospital Course Hospital course: . Discharge diagnosis: . Time Spent with Patient Time attestation: Total time spent providing and/or coordinating discharge services: EXAM Constitutional Vitals: Temp Pulse Resp BP Pulse Ox 98.3 F 86 16 114/66 95 08/22/20 04:00 08/22/20 07:13 08/22/20 04:00 08/22/20 04:00 08/22/20 04:00 Discharge Data Data Completed and Pending Labs on day of discharge: Labs from last 24 hours 08/22/20 08/22/20 08/22/20 05:48 05:47 05:47 WBC 3.7 L RBC 2.57 L Hgb 8.0 L Hct 24.9 L MCV 96.9 MCH 31.1 MCHC 32.1 RDW 12.8 Plt Count 136 L MPV 9.5 Seg Neutrophils % 70 Band Neutrophils % Pending Lymphocytes % 16 Monocytes % (Manual) 12 Eosinophils % (Manual) 2 Platelet Estimate Normal RBC Morphology Normal PT 13.0 INR 0.9 Sodium 133 Potassium 4.1 Chloride 104 Carbon Dioxide 21 L Anion Gap 8.0 BUN 11 Creatinine 0.7 GFR Calculation 91 Glucose 113 H Uric Acid 3.9 Calcium 8.6 Phosphorus 2.7 Magnesium 2.0 Total Bilirubin 0.4 Direct Bilirubin < 0.2 GGT 12 AST 23 ALT 8 Alkaline Phosphatase 39 Lactate Dehydrogenase 209 Total Protein 5.0 L Albumin 2.9 L Globulin 2.1 L Albumin/Globulin Ratio 1.4 Triglycerides 86 Discharge Plan Patient/Caregiver Discharge Instructions Activity: ambulate only with your walker, as per physical therapy and as instructed Diet: Regular Diet Activity Restrictions/Additional Instructions: TTWB on RLE. Silver dressing X7 days then dry dressings. Follow-up with [facility] in 2 weeks. Prescriptions: New methocarbamol 750 mg Tablet 750 mg PO Q6HP PRN (Reason: Muscle Spasm) Qty: 40 RF: 0 aspirin 325 mg Tablet,Delayed Release (Dr/Ec) 325 mg PO BID 30 Days Qty: 60 RF: 0 oxycodone-acetaminophen 5-325 mg Tablet 1 - 2 tab PO Q4HP PRN (Reason: Per Pain Protocol) Qty: 60 RF: 0 Continued citalopram 20 MG tablet 20 mg PO DAILY RF: 0 simvastatin 20 MG tablet 20 mg PO DAILY RF: 0 omeprazole 20 MG capsule,delayed release(DR/EC) 20 mg PO BID RF: 0 oxybutynin chloride 5 mg Tablet 5 mg PO QID RF: 0 melatonin 10 mg Tablet 10 mg PO HS RF: 0 Discontinued aspirin [Adult Low Dose Aspirin] 81 MG tablet,delayed release (DR/EC) 81 mg PO QDAY RF: 0 oxycodone-acetaminophen 5-325 mg tablet 1 tab PO TID RF: 0 methocarbamol 750 mg Tablet 325 mg PO QID RF: 0 Follow Up Plan Follow up with: Roberth Lilly PA-C [Physician Director Of Therapy Services] - Patient Disposition: Xfer SNF Prognosis: Good Rehab Potential: Fair I certify that the patient requires SNF services: Yes Overall status at discharge: patient is progressing back to baseline Discharge Orders: Discharge Order (Routine); Ordered 08/22/20 Ordered By: Roberth Lilly QUALITY VTE Deep Vein Thrombosis/Pulmonary Embolism Present on Admission: No
[2020-08-22] MEDS: ACETAMINOPHEN 325 MG TABLET PO PRN (11:34)
== END 2020-08-22 13:25 | DRG 481 ==
LOC: ED 12:29 → MEDSUR 15:20
PROVIDERS: ADMIT Internal Medicine; ATTEND Internal Medicine